=== PATIENT | female | born 2000 | race Two or more races ===

== ENCOUNTER 2024-12-26 06:10 | Inpatient (IN) ==
[2024-12-26] MEDS ORDERED: NUBAIN INJ 20 MG AMP IVP PRN (06:26)
[2024-12-26] MEDS ORDERED: ZOFRAN INJ 4 MG VIAL IVP PRN (06:26)
[2024-12-26] MEDS ORDERED: REGLAN INJ 10 MG VIAL IVP PRN (06:26)
[2024-12-26] MEDS: LR 1,000 ML IV 1,000 ML IV SCH (06:58)
[2024-12-26] MEDS: OXYTOCIN 20 UNIT/1,000 ML-NS 20 UNIT/1,000 ML PLAST..BAG IV PRN (07:35)
[2024-12-26 09:02] LABS: BILIRUBIN,URINE NEGATIVE (NEGATIVE); BLOOD/HEMOGLOBIN,URINE 5+ (NEGATIVE); GLUCOSE, URINE NEGATIVE (NEGATIVE); KETONES,URINE NEGATIVE (NEGATIVE); LEUKOCYTE ESTERASE ,URINE 3+ (NEGATIVE); NITRITES,URINE NEGATIVE (NEGATIVE); PROTEIN,URINE 1+ (NEGATIVE); UROBILINOGEN,URINE NORMAL (NORMAL)
[2024-12-26 09:20] LABS: APPEARANCE,URINE CLEAR (CLEAR); COLOR,URINE YELLOW (YELLOW)
[2024-12-26 09:24] LABS: BACTERIA,URINE NEGATIVE /HPF (NEGATIVE); SQUAMOUS EPITHELIAL CELL,UR FEW /HPF (NEGATIVE)
[2024-12-26] MEDS: LR 1,000 ML IV 1,000 ML IV ONE ×3 (10:45→21:42)
[2024-12-26] MEDS: NAROPIN EPIDURAL 0.2% 100 ML ONE (12:05)
[2024-12-26] MEDS: FENTANYL VIAL INJ 100 mcg ONE (12:05)
[2024-12-26] MEDS: PITOCIN IVP ONE (15:00)
[2024-12-26] MEDS: MARCAINE 0.25% INJ ONE (15:05)
[2024-12-26] MEDS: BETADINE SOLN ONE (16:54)
[2024-12-26] MEDS ORDERED: MOTRIN TAB 800 MG PO PRN (17:15)
[2024-12-26] MEDS ORDERED: OXYTOCIN 20 UNIT/1,000 ML-NS 20 UNIT/1,000 ML PLAST..BAG IV SCH (17:15)
[2024-12-26] MEDS ORDERED: MILK OF MAGNESIA PO PRN (18:06)
[2024-12-26] MEDS ORDERED: AMBIEN PO PRN (18:06)
[2024-12-26] MEDS: ADACEL or BOOSTRIX TDaP VACCINE IM ONE (19:29)
[2024-12-26] MEDS: MOTRIN TAB 800 MG PO PRN (20:11)
[2024-12-27 05:17] LABS: HEMOGLOBIN 9.4 g/dL (12.0-16.0)
[2024-12-27 05:23] LABS: HEMATOCRIT 27.1 % (36.0-47.0)
[2024-12-27] MEDS: DERMOPLAST PAIN RELIEF SPRAY TOP PRN (05:56)
[2024-12-27] MEDS: PRENATAL PLUS PO SCH (08:49)
[2024-12-27] MEDS: NS 100 ML IV 100 ML with VENOFER 400 MG IV ONE (10:28)
[2024-12-27 16:50] VITALS: BP 121/87; PULSE 76; RESP 21; TEMP 97.6; O2SAT 97
== END 2024-12-27 19:15 | disposition home or self-care (01) | DRG 807 ==
LOC: LD 06:10 → MED/SURG 18:09
PROVIDERS: ADMIT Obstetrics & Gynecology Obstetrics; ATTEND Obstetrics & Gynecology Obstetrics
DX: Z37.0 Single live birth; O26.893 Other specified pregnancy related conditions, third trimester; O71.4 Obstetric high vaginal laceration alone; Z3A.39 39 weeks gestation of pregnancy